=== PATIENT | female | born 1965 | race American Indian/Alaskan Native ===

== ENCOUNTER 2018-02-23 14:27 | Inpatient (IN) | payer MEDICAID ==
[2018-02-23 16:07] LABS: BASO % 1.1 % (0.0-2.0); EOS # 0.1 K/uL (0.0-0.7); EOS % 1.8 % (0.0-4.0); HEMOGLOBIN 13.8 g/dL (11.0-16.0); LYMPH # 1.9 K/uL (1.0-4.3); LYMPH % 45.1 % (20.0-40.0); MEAN CELL VOLUME 88.6 fL (81.0-99.0); MEAN CORPUSCULAR HEMOGLOBIN 29.8 pg (27.0-31.0); MEAN CORPUSCULAR HGB CONC 33.7 g/dL (33.0-37.0); MEAN PLATELET VOLUME 8.1 fL (7.2-11.7); MONO # 0.4 K/uL (0.0-0.8); MONO % 8.9 % (0.0-10.0); NEUT # 1.8 K/uL (1.8-7.0); NEUT % 43.1 % (50.0-75.0); NRBC % 0.1 % (0.0-2.0); RBC 4.63 Mil/uL (3.80-5.20); RED CELL DISTRIBUTION WIDTH 16.6 % (11.5-14.5); WHITE BLOOD COUNT 4.2 K/uL (4.8-10.8)
[2018-02-23 16:13] LABS: ALB/GLOB RATIO 0.8 (1.0-2.1); ALBUMIN 4.1 g/dL (3.5-5.0); ALT/SGPT 69 U/L (9-52); AST/SGOT 72 U/L (14-36); BLOOD UREA NITROGEN 20 mg/dL (7-17); CALCIUM 9.4 mg/dl (8.6-10.4); GFR NON-AFRICAN AMERICAN > 60
[2018-02-23 16:20] LABS: BARBITURATES, UR NEGATIVE (NEGATIVE); BENZODIAZEPINES, UR NEGATIVE (NEGATIVE); PHENCYCLIDINE, UR NEGATIVE (NEGATIVE)
[2018-02-23 16:21] LABS: OPIATES, UR POSITIVE (NEGATIVE)
[2018-02-23 16:28] LABS: SQUAMOUS EPITHIAL 2 /hpf (0-5); URINE BACTERIA FEW (<OCC); URINE BILIRUBIN NEGATIVE (NEGATIVE); URINE BLOOD NEGATIVE (NEGATIVE); URINE CLARITY Clear (Clear); URINE COLOR Yellow (YELLOW); URINE GLUCOSE (UA) NORMAL (Normal); URINE LEUKOCYTE ESTERASE 3+ Leu/uL (Negative); URINE PROTEIN NEGATIVE (NEGATIVE)
--- NOTE | 2018-02-23 16:56 | C.PDOC ---
History Of Present Illness 52-year-old female, presents to the emergency department, prescreened for detox from IV Heroin. Patient denies any nausea/vomiting, fever, chills or any other associated symptoms. No other complaints at this time. Time Seen by Provider: 02/23/18 15:56 Chief Complaint (Nursing): Substance Abuse History Per: Patient History/Exam Limitations: no limitations Past Medical History Reviewed: Historical Data, Nursing Documentation, Vital Signs Vital Signs: Last Vital Signs Temp 98.8 F 02/23/18 14:42 Pulse 80 02/23/18 14:42 Resp 18 02/23/18 14:42 BP 106/72 02/23/18 14:42 Pulse Ox 99 02/23/18 14:42 - Medical History PMH: HIV, HTN Family History: States: No Known Family Hx - Social History Hx Alcohol Use: No Hx Substance Use: Yes (heroin, cocaine) - Immunization History Hx Tetanus Toxoid Vaccination: Yes Hx Influenza Vaccination: Yes Hx Pneumococcal Vaccination: No Review Of Systems Constitutional: Negative for: Fever Cardiovascular: Negative for: Chest Pain Respiratory: Negative for: Cough Gastrointestinal: Negative for: Vomiting Musculoskeletal: Negative for: Back Pain Skin: Negative for: Rash Neurological: Negative for: Weakness, Numbness Psych: Negative for: Depression, Psychosis, Suicidal ideation, Withdrawal Physical Exam - Physical Exam Appears: Non-toxic, No Acute Distress Skin: Warm, Dry, No Rash Head: Atraumatic, Normacephalic Eye(s): bilateral: Normal Inspection, PERRL, EOMI Nose: Normal Oral Mucosa: Moist Lips: Normal Appearing Neck: Normal ROM Chest: Symmetrical Cardiovascular: Rhythm Regular, No Murmur Respiratory: Normal Breath Sounds, No Accessory Muscle Use Gastrointestinal/Abdominal: Soft, No Tenderness Back: Normal Inspection Extremity: Normal ROM, No Deformity Neurological/Psych: Oriented x3, Normal Speech ED Course And Treatment - Laboratory Results Result Diagrams: 02/23/18 15:50 02/23/18 15:50 O2 Sat by Pulse Oximetry: 99 Pulse Ox Interpretation: Normal (RA) Medical Decision Making Medical Decision Making: Patient has a small UTI. Macrobid PO ordered. Give Macrobid PO BID x 4 days. The patient is medically cleared for psych eval and admission Disposition - Disposition Disposition: HOSPITALIZED Disposition Time: 18:30 Condition: STABLE Forms: Corrigo (Qatari) - Clinical Impression Clinical Impression: Drug dependence, UTI (urinary tract infection), Bipolar 1 disorder, Opiate dependence - Scribe Statement The provider has reviewed the documentation as recorded by the Scribe (Su Brooks) All medical record entries made by the Scribe were at my direction and personally dictated by me. I have reviewed the chart and agree that the record accurately reflects my personal performance of the history, physical exam, medical decision making, and the department course for this patient. I have also personally directed, reviewed, and agree with the discharge instructions and disposition.
--- NOTE | 2018-02-23 19:33 | PCM.BM ---
Treatment Plan Problems - Problems identified on initial assessmt potential for opiate withdrawal Date Initiated: 02/23/18 Time Initiated: 19:32 Status: Active Treatment assets and liabiliti Patient Assests: ADL independent Patient Liabilities: substance abuse, medical problems - Milieu Protocol Maintain good personal hygiene: daily Encourage regular showers, daily Remind patient to perform daily oral care, daily Assist patient to perform ADL's Conduct patient checks and document Observation sheet: Q15 minutes Maintain personal safety: every shift Educate patient to report safety concerns to staff, every shift Monitor environment for contraband/sharps Medication safety: Monitor for expected outcome, potential side effects: every shift, Assess barriers to learning: every shift, Assess readiness for medication education: every shift
[2018-02-23] MEDS ORDERED: Aluminum Hydroxide/Magnesium Hydroxide Susp (30 mL) PO PRN (20:41)
[2018-02-24] MEDS: EMTRICITABINE PO SCH (09:45)
[2018-02-24] MEDS: COBICISTAT PO SCH (09:45)
[2018-02-24] MEDS: ELVITEGRAVIR PO SCH (09:45)
[2018-02-24] MEDS: [UNRECOGNIZED DRUG - OTHER] PO SCH (09:45)
[2018-02-24] MEDS ORDERED: Patient's Own Control Med PO SCH (10:00)
[2018-02-25] MEDS: [UNRECOGNIZED DRUG - OTHER] PO SCH (09:53)
[2018-02-25] MEDS: EMTRICITABINE PO SCH (09:53)
[2018-02-25] MEDS: COBICISTAT PO SCH (09:53)
[2018-02-25] MEDS: ELVITEGRAVIR PO SCH (09:53)
--- NOTE | 2018-02-25 20:47 | PCM.PSYCH ---
Initial Psychiatric Evaluation - Initial Psychiatric Evaluation Legal Status: Capacity Chief Complaint (in patient's own words): I NEED TO GET CLEAN! Patient's Reaction to Hospitalization: I AM GLAD I COULD GET A BED History of Present Illness and Precipitating Events: PT IS 52 YEAR PLD DOMICILED DISABLE FEMALE WHO PRESENTED TO THE RD REQUESTING ADMISSION TO DETOX.PT STATED THAT SHE USES ABOUT 4 BAGS OF HEROIN N A DAY. SHE SHARES NEEDLES SHE STARTED USING PAIN KILLERS THAT WERE NOT PRESCRIBED FOR HER.PT HAS NO PSYCH HX. PT HAS NO LEGAL OR HISTORY. SHE DENIESS ANY FAMILY HISTORY OF PSYCHIATRIC ILLNESS OR SUBSTANCE ABUSE. SHE GRADUATED HIGH SCHOOL. SHE HAS BEEN WITH HER BOY FRIEND FOR EIGHTEEN YEARS. SHE IS HIV + AND SUFFERS FROM HTN. SHE HAS ONE PREVIOUS DETOX AT [facility]. SHE DENIES USE OF ANY OTHER DRUG BESIDES HEROIN CURRENTLY. SHE HAS NEVER BEEN TO REHAB. Current Medications: Active Medications Generic Name Dose Route Start Last Admin Trade Name Freq PRN Reason Stop Dose Admin Acetaminophen 650 mg 02/23/18 20:40 Tylenol 325mg Tab PO Q4H PRN Pain, moderate (4-7) Al Hydrox/Mg Hydrox/Simethicone 30 ml 02/23/18 20:41 Maalox 30 Ml PO TID PRN Indigestion / Heartburn Amlodipine Besylate 10 mg 02/24/18 10:00 02/25/18 09:53 Norvasc PO 10 mg DAILY REEMA Administration Clonidine HCl 0.1 mg 02/23/18 20:40 Catapres PO Q8 PRN COWS Score More or Equal to 5 Home Med 1 tab 02/24/18 10:00 02/25/18 09:53 Patient's Own Medication PO 1 tab DAILY REEMA Administration Hydroxyzine HCl 25 mg 02/23/18 20:42 02/24/18 17:08 Atarax PO 25 mg Q6 PRN Administration Anxiety Loperamide HCl 2 mg 02/23/18 20:41 Imodium PO Q8 PRN Diarrhea Ondansetron HCl 4 mg 02/23/18 20:41 Zofran Tab PO Q8 PRN Nausea/Vomiting Trazodone HCl 50 mg 02/23/18 20:42 Desyrel PO HS PRN Sleep Past Psychiatric History - Past Psychiatric History Previous Treatment History: None Pertinent Medical Hx (Current Medical&Sleep Prob, Allergies): Allergies Allergy/AdvReac Type Severity Reaction Status Date / Time No Known Allergies Allergy Verified 02/23/18 14:46 Elviteg/Cob/Emtri/Tenof Alafen [Genvoya Tablet] 1 each PO DAILY 02/23/18 amLODIPine [Norvasc] 10 mg PO DAILY 02/23/18 Review of Systems - Constitutional Constitutional: Chills, Sweats - EENT Eyes: Sees Flashes, UNREMARKABLE Ears: UNREMARKABLE Nose/Mouth/Throat: UNREMARKABLE - Breasts Breasts: UNREMARKABLE - Cardiovascular Cardiovascular: UNREMARKABLE - Respiratory Respiratory: UNREMARKABLE - Gastrointestinal Gastrointestinal: Abdominal Pain - Genitourinary Genitourinary: UNREMARKABLE - Reproductive: Female Reproductive:Female: UNREMARKABLE - Menstruation Menstruation: UNREMARKABLE - Musculoskeletal Musculoskeletal: Arthralgias, Myalgias - Integumentary Integumentary: UNREMARKABLE - Neurological Neurological: UNREMARKABLE - Psychiatric Psychiatric: UNREMARKABLE - Endocrine Endocrine: UNREMARKABLE - Hematologic/Lymphatic Hematologic: UNREMARKABLE Mental Status Examination - Personal Presentation Personal Presentation: Looks older than stated age - Affect Affect: Constricted - Motor Activity Motor Activity: Calm - Reliability in Providing Information Reliability in Providing Information: Good - Speech Speech: Organized - Mood Mood: Anxious - Formal Thought Process Formal Thought Process: No Impairment - Obsessions/Compulsions Obsessions: None Compulsions: None - Cognitive Functions Orientation: Person, Place, Situation, Time Sensorium: Alert Attention/Concentration: Attentive Abstract Thinking: As evidence by literal perception of proverbs Estimate of Intelligence: Average Judgement: Intact, as evidence by: Good judgement Memory: Recent intact, as evidence by: Ability to recall events of the day, Remote intact, as evidenced by: Abilit to recall sig. life events - Risk Risk: Withdrawal - Strength & Assets Inventory Strength & Assets Inventory: Family support, Education, Employment history - Limitations Limitations: Other DSM 5 DX - DSM 5 DSM 5 Diagnosis: OPIOID WITHDRAWAL: METHADONE TAPER ND CBT GROUP MILIEU AND RECREATIONAL THERAPY SUPPORTIVE PSYCHOTHERAPY OLPIOID USE DISORDER : MILD CBT ND PSYCOEDUCATION SUPPORTIVE PSYCHOTHERAPY - Recommended/Plan of Treatment Treatment Recommendations and Plan of Treatment: SEE ABOVE Projected ELOS: 5 DAYS Prognosis: GOOD Discharge Plan and Discharge Criteria: REFER PT TO INPT REHAB AFTER ACUTE SYMPTOMS OF WITHDRAWAL HAVE CEASED - Smoking Cessation Smoking Cessation Initiated: No
--- NOTE | 2018-02-25 20:58 | PCM.PYCHPN ---
Psychiatric Progress Note - Psychiatric Progress Note Patient Chief Complaint: I NEED TO GET CLEAN! Problems Identified/Issues Discussed: PT SEEN AND EXAMINED DISCUSSED WITH TEAM D/W PT AFTERCARE OPTIONS Medical Problems: NOTHING ACUTE Diagnostic Results: REVIEWED DSM 5 Symptoms Update: ANXIETY INSOMNIA Medication Change: Yes (METHADONE TAPER) Medical Record Reviewed: Yes Mental Status Examination - Cognitive Function Orientation: Person, Place, Situation, Time Memory: Intact Attention: WNL Concentration: WNL Association: WNL Fund of Knowledge: WNL - Mood Mood: Anxious - Affect Affect: Constricted - Speech Speech: Appropriate - Formal Thought Process Formal Thought Process: No Impairment - Suicidal Ideation Suicidal Ideation: No - Homicidal Ideation Homicidal Ideation: No Goal/Treatment Plan - Goal/Treatment Plan Need for Continued Stay: Discharge may exacerbated symptoms Progress Toward Problem(s) and Goals/Treatment Plan: OPIOID WITHDRAWAL: METHADONE TAPER OPIOID USE DISORDER:CBT CT SUPPORTIVE PSYCHOTHERAPY Estimated Date of D/C: 02/27/18 - Smoking Cessation Smoking Cessation Initiated: No
[2018-02-26] MEDS: [UNRECOGNIZED DRUG - OTHER] PO SCH (09:47)
[2018-02-26] MEDS: EMTRICITABINE PO SCH (09:47)
[2018-02-26] MEDS: COBICISTAT PO SCH (09:47)
[2018-02-26] MEDS: ELVITEGRAVIR PO SCH (09:47)
[2018-02-26] MEDS ORDERED: Magnesium Hydroxide Susp 30 ml UD PO ONE ×2 (11:04→21:00)
--- NOTE | 2018-02-26 13:10 | PCM.PYCHPN ---
Psychiatric Progress Note - Psychiatric Progress Note Patient seen today, length of contact: 16 min Patient Chief Complaint: "I don't feel well" Problems Identified/Issues Discussed: The pt is seen, chart reviewed, case discussed with staff. The pt is compliant with medications and reports no side-effects. Symptoms are improving but needs more time to stabilize. Pt attends groups and activities. Support given, psycho-education provided. After care discussed. Medication Change: Yes (METHADONE TAPER) Medical Record Reviewed: Yes Mental Status Examination - Cognitive Function Orientation: Person, Place, Situation, Time Memory: Intact Attention: WNL Concentration: Poor Association: WNL Fund of Knowledge: WNL - Mood Mood: Anxious - Affect Affect: Constricted - Speech Speech: Appropriate - Formal Thought Process Formal Thought Process: No Impairment - Suicidal Ideation Suicidal Ideation: No - Homicidal Ideation Homicidal Ideation: No Goal/Treatment Plan - Goal/Treatment Plan Need for Continued Stay: Discharge may exacerbated symptoms, Severe functional impairment Progress Toward Problem(s) and Goals/Treatment Plan: Continue medications Support and psychoeducation daily Attend groups and activities daily After care planning by counselors Refer to LT rehab Consider MAT Estimated Date of D/C: 02/28/18 If changed, why: still sick
--- NOTE | 2018-02-26 13:16 | RAD ---
HISTORY: Medical clearance COMPARISON: No prior. TECHNIQUE: Chest PA and lateral FINDINGS: LINES AND TUBES: None. LUNG AND PLEURA: The lungs are hyperinflated and there is peribronchial thickening with chronic changes in both lungs. No pleural effusion or pneumothorax. HEART AND MEDIASTINUM: The heart is not enlarged. No atherosclerotic aortic calcifications the hilar and mediastinal contours are within normal limits. SKELETAL STRUCTURES: The bony structures are within normal limits for the patient's age. VISUALIZED UPPER ABDOMEN: Normal. OTHER FINDINGS: Nodular density with surrounding lucency overlying the right lower lobe compatible with nipple shadow.. IMPRESSION: No active pulmonary disease. COPD.
[2018-02-27] MEDS: [UNRECOGNIZED DRUG - OTHER] PO SCH (09:50)
[2018-02-27] MEDS: ELVITEGRAVIR PO SCH (09:50)
[2018-02-27] MEDS: EMTRICITABINE PO SCH (09:50)
[2018-02-27] MEDS: COBICISTAT PO SCH (09:50)
--- NOTE | 2018-02-27 11:41 | PCM.PYCHPN ---
Psychiatric Progress Note - Psychiatric Progress Note Patient seen today, length of contact: 16 min Patient Chief Complaint: "I am not OK yet" Problems Identified/Issues Discussed: The pt is seen, chart reviewed, case discussed with staff. The pt is compliant with medications and reports no side-effects. Symptoms are improving but needs more time to stabilize. After care discussed, support and psychoeducation given. Medication Change: Yes (detox changes daily) Medical Record Reviewed: Yes Mental Status Examination - Cognitive Function Orientation: Person, Place, Situation, Time Memory: Intact Attention: WNL Concentration: Poor Association: WNL Fund of Knowledge: WNL - Mood Mood: Anxious - Affect Affect: Constricted - Speech Speech: Appropriate - Formal Thought Process Formal Thought Process: No Impairment - Suicidal Ideation Suicidal Ideation: No - Homicidal Ideation Homicidal Ideation: No Goal/Treatment Plan - Goal/Treatment Plan Need for Continued Stay: Discharge may exacerbated symptoms, Severe functional impairment Progress Toward Problem(s) and Goals/Treatment Plan: Continue medications Support and psychoeducation daily Attend groups and activities daily After care planning by counselors Refer to LT rehab Consider MAT Estimated Date of D/C: 02/28/18
[2018-02-28 05:47] VITALS: RESP 18; O2SAT 99
[2018-02-28 08:06] VITALS: BP 114/81; PULSE 81; TEMP 97.4
--- NOTE | 2018-02-28 08:12 | PCM.PYCHDC ---
Mental Status Examination - Mental Status Examination Orientation: Person, Place, Situation, Time Memory: Intact Mood: Anxious Affect: Constricted Speech: Appropriate Attention: WNL Concentration: WNL Association: WNL Fund of Knowledge: WNL Formal Thought Process: No Impairment Suicidal Ideation: No Current Homicidal Ideation?: No Discharge Summary - Discharge Note Reason for Hospitalization: Opiate detox Consultations:: List each consultation separately and include: 1. Reason for request. 2. Findings. 3. Follow-up Summary of Hospital Course include:: 1. Description of specific treatment plan utilized for patients during their course of treatmen. 2. Summarize the time- course for resolution of acute symptoms and/or regressed behaviors. 3. Describe issues identified and worked on during hospitalization. 4. Describe medication utilized. 5. Describe medical problems identified and treated. 6. Reassessment of suicide risk Summary of Hospital Course: The pt was admitted and started on treatment with psychotherapy, support, psychoeducation and medications. ID and CBT used. The pt attended groups and activities, as well as milieu therapy. All the risks and benefits of medications are discussed and the patient understood and agreed. The pt improved with the treatments provided. After care discussed with the patient. She went to [facility]. - Final Diagnosis (DSM 5) Condition upon Discharge: STABLE DSM 5: Opioid withdrawal Opioid use d/o - severe Disposition: REHAB FACILITY/REHAB UNIT Follow-up Treatment Plan: Continue below medications after discharge. Follow after care plan as discussed. Use relapse prevention skills Return to ER or call 911 if suicidal, homicidal or symptoms relapse. Stay away from stress, alcohol and drugs. See primary doctor regularly and get labs. Prescriptions/Medication Reconciliation: amLODIPine [Norvasc] 10 mg PO DAILY #30 tab Elviteg/Cob/Emtri/Tenof Alafen [Genvoya Tablet] 1 each PO DAILY #30 tablet traZODone [Desyrel] 50 mg PO HS PRN #30 tab PRN Reason: Sleep - Smoking Cessation Smoking Cessation Medication prescribed: No - Antipsychotic Medications Pt discharged on 2 or more routine antipsychotic medications: No
[2018-02-28] MEDS: [UNRECOGNIZED DRUG - OTHER] PO SCH (09:03)
[2018-02-28] MEDS: EMTRICITABINE PO SCH (09:03)
[2018-02-28] MEDS: ELVITEGRAVIR PO SCH (09:03)
[2018-02-28] MEDS: COBICISTAT PO SCH (09:03)
== END 2018-02-28 09:28 | disposition home or self-care (01) | DRG 773 ==
LOC: C.ER 14:27 → C.7D 18:48
PROVIDERS: ADMIT Psychiatry & Neurology Psychiatry; ATTEND Psychiatry & Neurology Psychiatry
PROC: GZHZZZZ Group Psychotherapy (ICD-10-PCS; principal; 2018-02-23)
PROC: GZ56ZZZ Individual Psychotherapy, Supportive (ICD-10-PCS; 2018-02-23)
DX: F11.23 Opioid dependence with withdrawal (principal); F31.9 Bipolar disorder, unspecified; I10 Essential (primary) hypertension; N39.0 Urinary tract infection, site not specified; F51.05 Insomnia due to other mental disorder; F41.9 Anxiety disorder, unspecified